=== PATIENT | female | born 1950 | race Caucasian/White ===

== ENCOUNTER 2017-06-14 06:32 | Day surgery (SDC) | payer OTHER ==
[~2017-06-14] VITALS: Ht 157.5 cm; Wt 61.4 kg
[~2017-06-14 06:32] MED LIST: Advil200 M1 PO; CALCAVITD PO; CHOL10002; FISH1000 PO; Multiple Vitam1 EACH PO; PHENA200 PO; POTASSIUM99 M1 PO; PRIMPRO; PROBIOTIC1 EAC1 PO; SULTRIDS PO; UBID10
== END 2017-06-14 10:45 | disposition home or self-care (01) ==
LOC: ORSCSDS 06:32
DX: M20.11 Hallux valgus (acquired), right foot (principal); M20.41 Other hammer toe(s) (acquired), right foot; T84.84XA Pain due to internal orthopedic prosthetic devices, implants and grafts, initial encounter; I10 Essential (primary) hypertension; Z79.899 Other long term (current) drug therapy; Z87.891 Personal history of nicotine dependence
CPT/HCPCS: C1713; J1100; J2250; J2405; J3010

== ENCOUNTER 2017-07-03 11:05 | Emergency (ER) | payer OTHER ==
[~2017-07-03] VITALS: Ht 157.5 cm; Wt 61.2 kg
[2017-07-03] MEDS ORDERED: Coumadin5 MG PO (11:57)
[2017-07-03] MEDS ORDERED: Lovenox80 MG/0.8 SC (11:57)
== END 2017-07-03 12:12 | disposition home or self-care (01) ==
LOC: ER 11:05
DX: I82.441 Acute embolism and thrombosis of right tibial vein (principal); Z88.1 Allergy status to other antibiotic agents; Z79.899 Other long term (current) drug therapy; Z87.891 Personal history of nicotine dependence
CPT/HCPCS: 93971; 96372; 99283; J1650

== ENCOUNTER 2017-07-24 19:41 | Emergency (ER) | payer OTHER ==
[~2017-07-24] VITALS: Ht 157.5 cm; Wt 61.2 kg
[~2017-07-24 19:41] MED LIST changes: +Coumadin5 MG PO; +Lovenox80 MG/0.8 SC
[2017-07-24 20:27] LABS: BASOPHILS ABSOLUTE AUTO 0.04 K/mm3 (0.00-0.23); BASOPHILS PERCENT AUTO 1 % (0-2); EOSINOPHILS PERCENT AUTO 2 % (0-6); Hematocrit 39.9 % (33.0-51.0); Hemoglobin 12.7 g/dL (11.5-16.0); IMMATURE GRAN PERCENT AUTO 0 % (0-1); LYMPHOCYTES ABSOLUTE AUTO 2.14 K/mm3 (0.84-5.20); LYMPHOCYTES PERCENT AUTO 44 % (21-46); MONOCYTES ABSOLUTE AUTO 0.44 K/mm3 (0.16-1.47); MONOCYTES PERCENT AUTO 9 % (4-13); Mean Corpuscular HGB 29.4 pg (26.0-34.0); Mean Corpuscular HGB Conc 31.8 g/dL (31.5-36.5); Mean Corpuscular Volume 92 fL (80-100); Mean Platelet Volume 9.5 fL (9.1-12.4); NEUTROPHILS ABSOLUTE AUTO 2.11 K/mm3 (1.96-9.15); NEUTROPHILS PERCENT AUTO 44 % (41-73); Platelet Count 338 K/mm3 (150-400); RDW Coefficient Variation 13.9 % (11.7-14.2); RDW Standard Deviation 47.5 fL (35.1-46.3); Red Blood Cell Count 4.32 M/mm3 (3.80-5.20); White Blood Cell Count 4.83 K/mm3 (4.00-11.30)
[2017-07-24 20:41] LABS: International Normalized Ratio 1.53; Prothrombin Time Results 16.1 Sec (9.7-11.5)
[2017-07-24 20:45] LABS: Alanine Aminotransfer (ALT/SGP 51 U/L (12-78); Albumin/Globulin Ratio 1.1 (0.8-1.8); Alk Phos 68 U/L (50-136); Anion Gap 7 mmol/L (6-16); Aspartate Aminotrans (AST/SGOT 20 U/L (12-37); Bilirubin, Total 0.3 mg/dL (0.1-1.0); Blood Urea Nitrogen 14 mg/dL (8-24); Bun/Creatinine Ratio 24.5 (12.0-20.0); CO2, Blood 30 mmol/L (21-32); Calcium, Blood 9.8 mg/dL (8.5-10.1); Chloride, Blood 102 mmol/L (98-108); Creatinine, Blood 0.57 mg/dL (0.40-1.00); Globulin, Blood 3.5 g/dL (2.2-4.0); Glomerular Filtration Rate >60 (60-); Glucose, Blood 97 mg/dL (70-99); Potassium, Blood 3.9 mmol/L (3.5-5.5); Sodium, Blood 139 mmol/L (136-145); Total Protein, Blood 7.5 g/dL (6.4-8.2)
== END 2017-07-25 00:05 | disposition home or self-care (01) ==
LOC: ER 19:41
PROVIDERS: Nurse Practitioner Family
DX: I82.491 Acute embolism and thrombosis of other specified deep vein of right lower extremity (principal); Z88.1 Allergy status to other antibiotic agents; Z79.899 Other long term (current) drug therapy; Z79.01 Long term (current) use of anticoagulants; Z90.49 Acquired absence of other specified parts of digestive tract; Z90.89 Acquired absence of other organs; Z87.891 Personal history of nicotine dependence
CPT/HCPCS: 80053; 85025; 85610; 85730; 93971; 96372; 99284; J1650

== ENCOUNTER 2024-09-18 08:21 | Day surgery (SDC) | payer OTHER ==
[~2024-09-18] VITALS: Ht 157.5 cm; Wt 64.8 kg
[2024-09-18] VITALS (17 sets, daily range): BP systolic 93–146; BP diastolic 36–77
[~2024-09-18 08:21] MED LIST changes: +Acetaminophen 500 MG Tab PO SCH; -CALCAVITD PO; +CeFAZolin Sodium 2,000 MG in NS 100 ML IV SCH; +Chlorhexidine Mouth Care 15 ML UDC MT SCH; +FERROUS GLUCON324 M4 PO; +FERSU300; +Lactated Ringer's 1,000 ML IV SCH; +MAGCIT300 PO; +MULVITA PO; +OxyCODONE HCL 10 MG TABCR PO SCH; +PROBIOTIC1 EA14 PO; -PROBIOTIC1 EAC1 PO; +Ropivacaine 0.5% HCl/Pf 123.125 MG,EPINEPHrine HCL 0.25 MG,Ketorolac Tromethamine 15 MG... INFIL SCH; +Tranexamic Acid 100 ML IV SCH; +VITAMIN A; +Vitamin C100 M1 PO; +[UNRECOGNIZED DRUG - OTHER] PO
[2024-09-18] MEDS ORDERED: propofoL 20 ML IV ONE ×2 (08:24→11:56)
[2024-09-18] MEDS ORDERED: Lactated Ringer's 1,000 ML IV SCH ×2 (08:40→12:00)
[2024-09-18] MEDS ORDERED: CeFAZolin Sodium 2,000 MG VIAL ONE (08:41)
[2024-09-18] MEDS ORDERED: Lidocaine HCl 1% 5 ML SYR INFIL SCH (08:50)
--- NOTE | 2024-09-18 09:05 | NUR ---
History, Chart, Medications and Allergies reviewed before start of procedure. Patient confirms NPO status and agrees with scheduled surgery. Pre-Op teaching done. Pt verbalizes understanding. Patient reports completing Chlorhexadine shower X2 prior to admission to hospital. Lungs clear T/O to Auscultation.
[2024-09-18] MEDS ORDERED: propofoL 100 ML IV ONE (10:01)
[2024-09-18] MEDS ORDERED: Dexamethasone Sod Phos 10 MG/ML 1ML VIAL ONE (10:40)
[2024-09-18] MEDS ORDERED: Ondansetron HCl 2 MG / ML 2ML Vial ONE (10:40)
[2024-09-18] MEDS ORDERED: Phenylephrine HCl 100 MCG/ML-NS 10MLSYR (1MG/10ML) ONE ×3 (10:40→11:47)
[2024-09-18] MEDS ORDERED: Albuterol 2.5 MG/3 ML VIAL INH PRN (10:50)
[2024-09-18] MEDS ORDERED: FentaNYL Citrate 50 MCG/ML 2 ML Injection IV PRN ×2 (10:50→10:55)
[2024-09-18] MEDS ORDERED: Prochlorperazine Edisylate 10 mg Vial IV PRN ×2 (10:50→11:45)
[2024-09-18] MEDS ORDERED: Ondansetron HCl 2 MG / ML 2ML Vial IV PRN ×2 (10:50→11:50)
[2024-09-18] MEDS ORDERED: Metoclopramide HCl 5MG / ML 2ML Vial IV PRN ×2 (10:50→11:55)
[2024-09-18] MEDS ORDERED: HYDROmorphone HCl/Pf 1MG SYR IV PRN ×2 (10:55→11:50)
[2024-09-18] MEDS ORDERED: OxyCODONE HCL 5 MG TAB PO PRN ×2 (11:40)
[2024-09-18] MEDS ORDERED: Promethazine HCl 25 MG Tab PO PRN (11:45)
[2024-09-18] MEDS ORDERED: Bisacodyl 10 MG Supp PR PRN (11:45)
[2024-09-18] MEDS ORDERED: DiphenhydrAMINE HCL 25 MG Cap PO PRN (11:45)
[2024-09-18] MEDS ORDERED: Magnesium Hydroxide Conc 10 ML UDC PO PRN (11:50)
[2024-09-18] MEDS ORDERED: Ketorolac Tromethamine 15mg Vial IV SCH (12:00)
[2024-09-18] MEDS ORDERED: HYDROmorphone HCl/Pf 1MG SYR ONE (12:24)
[2024-09-18] MEDS ORDERED: FentaNYL Citrate 50 MCG/ML 2 ML Injection ONE (12:33)
--- NOTE | 2024-09-18 13:30 | NUR ---
POST-OP PATIENT TO ROOM @1305, AOX4, REPORTS SOME N/T IN FEET, ABLE TO WIGGLE ALL TOES, PEDAL PULSES 3+, CAP REFIL <3. PAIN RATED 4/10. ICE, AND SCDS IN PLACE. AQUACEL IN PLACE C/D/I. ON 2L NC SATS 95-98%. VSS. CALL LIGHT IN REACH, SPOUSE IN ROOM.
[2024-09-18] MEDS ORDERED: Acetaminophen 500 MG Tab PO SCH (16:00)
--- NOTE | 2024-09-18 17:28 | NUR ---
SUMMARY PATIENT IS STILL N/T IN LLE, UNABLE TO LIFT LEG, CAN WIGGLE TOES, VOIDS USING BED STERLING. REPORTS PAIN IS 4/10. VSS. ABLE TO MAKE NEEDS KNOWN, ON RA SATS 95-100%. CALL LIGHT IN REACH.
[2024-09-18] MEDS ORDERED: CeFAZolin Sodium 2,000 MG in NS 100 ML IV SCH (18:00)
[2024-09-18] MEDS ORDERED: Docusate Sodium 100 MG Cap PO SCH (21:00)
--- NOTE | 2024-09-18 21:42 | NUR ---
ASSUMED CARE ASSUMED CARE OF PT AT 1999 TODAY. PT POD 0 S/P LEFT TOTAL HIP. AQUACEL CDI WITH CRYO IN PLACE. PT A/OX4 W/VSS. ON RA, DENIES SOB. DENIES PAIN TO LLE. REPORTS N/T TO FEET, BUT STATES N/T IS SLOWLY DECREASING. AWAITING POST OP AMBULATION AND VOID DUE TO N/T. COMPLAINS OF MUSCLE CRAMPING IN LEGS, WHICH IS AT BASELINE- STATES, "CRAMPING IS NOT ANY WORSE TODAY THAN NORMAL." PT ONLY REQUESTING SPORTS DRINK, WHICH IS HER HOME [place] USUALLY. PT SHOSHANA SMALL AMOUT PO INTAKE, DENIES N/V. IV PATENT AND SL. SCSD AND COMPRESSION SOCKS BLE. DISCUSSED PAIN MANAGEMENT, PT VERBALIZED UNDERSTANDING. ENCOURAGED FIRST POST OP VOID AND PO FLUIDS. AGREES USE BEDPAN IF NEEDED AND TO AMBULATE WHEN ABLE TO. PT CURRENTLY RESTING BED WITH CALL LIGHT IN REACH, IS ABLE TO MAKE NEEDS KNOWN.
[2024-09-19 00:31] VITALS: BP 125/54
[2024-09-19 04:53] VITALS: BP 119/57
[2024-09-19 05:26] LABS: BASOPHILS ABSOLUTE AUTO 0.04 K/mm3 (0.00-0.23); BASOPHILS PERCENT AUTO 0 % (0-2); EOSINOPHILS ABSOLUTE AUTO 0.05 K/mm3 (0.00-0.68); EOSINOPHILS PERCENT AUTO 1 % (0-6); Hematocrit 28.5 % (33.0-51.0); Hemoglobin 9.3 g/dL (11.5-16.0); IMMATURE GRAN ABSOLUTE AUTO 0.03 K/mm3 (0.00-0.10); IMMATURE GRAN PERCENT AUTO 0 % (0-1); LYMPHOCYTES ABSOLUTE AUTO 1.67 K/mm3 (0.84-5.20); LYMPHOCYTES PERCENT AUTO 18 % (21-46); MONOCYTES ABSOLUTE AUTO 0.89 K/mm3 (0.16-1.47); MONOCYTES PERCENT AUTO 9 % (4-13); Mean Corpuscular HGB 30.8 pg (26.0-34.0); Mean Corpuscular HGB Conc 32.6 g/dL (31.5-36.5); Mean Corpuscular Volume 94 fL (80-100); Mean Platelet Volume 10.2 fL (9.1-12.4); NEUTROPHILS ABSOLUTE AUTO 6.86 K/mm3 (1.96-9.15); NEUTROPHILS PERCENT AUTO 72 % (41-73); Platelet Count 237 K/mm3 (150-400); RDW Standard Deviation 48.1 fL (35.1-46.3); Red Blood Cell Count 3.02 M/mm3 (3.80-5.20); White Blood Cell Count 9.54 K/mm3 (4.00-11.30)
--- NOTE | 2024-09-19 05:46 | NUR ---
SHIFT SUMMARY SHAILA WAS ALERT AND FULLY ORIENTED ON ASSESSMENT. SPINAL HAS WORN OFF, SENSATION AND CIRCULATION INTACT TO FEET. PT AMBULATING AND VOIDING APPROPRIATELY. PT DENIES PAIN AND SOB. UNEVENTFUL SHIFT. PT RESTING NO NOTED CHANGES TO PT CONDITION. DRESSING C/D/I
[2024-09-19 05:57] LABS: Bun/Creatinine Ratio 18.6 (12.0-20.0); Calcium, Blood 8.7 mg/dL (8.5-10.1); Creatinine, Blood 0.54 mg/dL (0.40-1.00)
[2024-09-19 07:31] VITALS: BP 113/51
--- NOTE | 2024-09-19 08:50 | NUR ---
POST-OP DAY#1 PARTICIPATES WITH THERAPY, WALKING IN [place], V[place], TOLERATING PO INTAKE, AQUACEL IS C/D/I. PAIN IS RATED 3/10. DENIES N/T IN BILAT LE. ABLE TO MAKE NEEDS KNOWN AND AWAITING DC HOME.
[2024-09-19] MEDS ORDERED: Cholecalciferol 1000 Unit Tablet (=25MCG) PO SCH (09:00)
[2024-09-19] MEDS ORDERED: Ascorbic Acid 250 MG Chew PO SCH (09:00)
[2024-09-19] MEDS ORDERED: Ferrous Gluconate 325 MG Tablet PO SCH (09:00)
[2024-09-19] MEDS ORDERED: Calcium 500 MG/Vit D 200 Units Tab PO SCH (09:00)
[2024-09-19] MEDS ORDERED: Misc. Tablet PO SCH (09:00)
[2024-09-19] MEDS ORDERED: Lactobacil 2-S.Thermo-Bifido 1 1 Cap PO SCH (09:00)
[2024-09-19] MEDS ORDERED: Apixaban 5 MG Tab PO SCH (09:00)
[2024-09-19] MEDS ORDERED: Multivitamins 1 Tab PO SCH (09:00)
== END 2024-09-19 10:14 | disposition home or self-care (01) ==
LOC: ORSCMMR 08:21 → ORD 08:21 → ORSCMMR 12:51 → SURS 12:51 → ORD 09-19 10:14 → SURS 09-19 10:14
PROVIDERS: Orthopaedic Surgery
PROC: 0SRB0JA Replacement of Left Hip Joint with Synthetic Substitute, Uncemented, Open Approach (ICD-10-PCS; principal; 2024-09-18 10:00)
DX: M16.12 Unilateral primary osteoarthritis, left hip (principal); Z87.891 Personal history of nicotine dependence; Z86.718 Personal history of other venous thrombosis and embolism
CPT/HCPCS: 36415; 72170; 80048; 85025; 94760; 97110; 97116; 97162; A9270; C1713; C1776; J0171; J0690; J0735; J1100; J1171; J1885; J2371; J2405; J2704; J2795; J3010; J7120